=== PATIENT | male | born 1970 | race Caucasian/White ===

== ENCOUNTER 2016-06-05 17:58 | Emergency (ER) | payer BC ==
--- NOTE | 2016-06-05 18:26 | EDM.PDOC ---
ED HISTORY OF PRESENT ILLNESS - General Chief Complaint: Cardiovascular Problem Stated Complaint: CHEST PAIN Time Seen by Provider: 06/05/16 18:00 Source: Reports: Patient History Limitations: Reports: No limitations - History of Present Illness INITIAL COMMENTS - FREE TEXT/NARRATIVE: According to patient he has been having left upper extremity and lower extremity numbness for few days. he did go to his chiropractor and have manipulation done today. In the evening he started to notice some pain in his left shoulder and his left hand arm numbness got worse. No chest pain or tightness. He has had left shoulder pain, more so at night fro past few months. No nausea or vomiting. he did have some head ache which has resolved. Symptom Onset Date: 06/05/16 Symptom Onset Time: 17:00 Severity: mild Improves with: Reports: None Worsens with: Reports: None Associated Symptoms: Reports: headaches. Denies: confusion, chest pain, cough, diaphoresis, fever/chills, nausea/vomiting, seizure, shortness of breath, syncope - Related Data Allergies/ADRs: Allergies Allergy/AdvReac Type Severity Reaction Status Date / Time amoxicillin [Amoxicillin] Allergy Rash Verified 06/05/16 18:06 Home Meds: Home Meds Albuterol Sulfate [Albuterol Sulfate HFA] 8.5 gm IH Q4H PRN 02/19/13 [History] Calcium Carb&Cit/D3/Phytostrol [Citracal D + Heart Health] 1 each PO BEDTIME 05/30 [History] Fluticasone Propionate [Flovent HFA 44 MCG] 2 puff INH BID 02/19/13 [History] Multivitamin [Multi Vitamin Daily] 1 each PO BEDTIME 02/19/13 [History] Sertraline [Zoloft] 50 mg PO BEDTIME 02/19/13 [History] Simvastatin [Zocor] 40 mg PO BEDTIME 02/19/13 [History] diphenhydrAMINE [Benadryl] 25 mg PO BEDTIME PRN 02/19/13 [History] Carvedilol [Coreg] 6.25 mg PO BID 06/05/16 [History] Lisinopril 10 mg PO BEDTIME 06/05/16 [History] Past Medical History Musculoskeletal History: Reports: Osteoarthritis, Other (see below) Other Musculoskeletal History: Right lateral epicondylitis - treated with cortisone injections Social & Family History - Tobacco Use Years of Tobacco use: 18 Used Tobacco, but Quit: Yes Month Tobacco Last Used: 2006 Second Hand Smoke Exposure: No - Alcohol Use Days Per Week of Alcohol Use: 0 - Recreational Drug Use Recreational Drug Use: No ED ROS GENERAL - Review of Systems Review Of Systems: See Below Constitutional: Denies: fever, chills, weakness, fatigue, night sweats HEENT: Denies: Eye discharge, Vision change Respiratory: Denies: Shortness of Breath, Wheezing, Cough, Sputum Cardiovascular: Denies: Chest pain, Dyspnea on exertion, Lightheadedness, Palpitations, Syncope Endocrine: Denies: fatigue, high glucose GI/Abdominal: Denies: Abdominal pain, Nausea, Vomiting : Denies: dysuria, flank pain Musculoskeletal: Reports: shoulder pain (left). Denies: joint pain, joint swelling, muscle stiffness Skin: Denies: pruritis, rash Neurological: Reports: Headache, Tingling. Denies: Confusion, Dizziness, Tremors, Change in Speech, Gait Disturbance Psychiatric: Denies: Anxiety, Confusion ED EXAM, GENERAL - Physical Exam Exam: See Below Exam Limited By: No limitations General Appearance: alert, WD/WN, no apparent distress Eye Exam: bilateral eye: EOMI, PERRL Ears: normal external exam, normal canal, hearing grossly normal, normal TMs Ear Exam: bilateral ear: auricle normal, canal normal, TM normal Nose: normal inspection, normal mucosa, no blood Throat/Mouth: Normal inspection, Normal lips, Normal teeth, Normal gums, Normal oropharynx, Normal voice, No airway compromise Head: atraumatic, normocephalic Neck: normal inspection, supple, non-tender, full range of motion Respiratory/Chest: no respiratory distress, lungs clear, normal breath sounds, no accessory muscle use, chest non-tender Cardiovascular: normal peripheral pulses, regular rate, rhythm, no edema, no gallop, no JVD, no murmur, no rub GI/Abdominal: normal bowel sounds, soft, non tender, no organomegaly, no distention, no abnormal bruit, no mass Extremities: normal inspection, normal range of motion, non-tender, no pedal edema, normal capillary refill, other (left shoulder weakness in supraspinatus tendon.) Neurological: alert, oriented, CN II-XII intact, normal cognition, normal gait, normal reflexes, no motor/sensory deficits Skin Exam: Warm, Intact EKG INTERPRETATION EKG Date: 06/05/16 Rhythm: NSR Rate (beats/min): 87 [place]: normal P-wave: present QRS: normal ST-T: normal QT: normal Course - Vital Signs Text/Narrative:: Pt's EKG is normal. His CBC and CMP are normal and his troponin is negative. His left arm tinging is going on for more than a day. It does appear like he has tingling form possible neurological and chronic.. 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 Last Recorded V/S: Last Vital Signs Temp 97.4 F 06/05/16 18:14 Pulse 94 06/05/16 17:58 Resp 16 06/05/16 18:14 BP 129/89 06/05/16 18:14 Pulse Ox 94 L 06/05/16 18:14 - Orders/Labs/Meds Orders: Active Orders 24 hr Category Date Time Status EKG Documentation Completion [RC] ASDIRECTED Care 06/05/16 18:03 Active COMPREHENSIVE METABOLIC PN,CMP [CHEM] Stat Lab 06/05/16 18:00 Received TROPONIN I [CHEM] Stat Lab 06/05/16 18:00 Received Labs: Laboratory Tests 06/05/16 Range/Units 18:03 WBC 8.8 (4.0-11.0) K/uL RBC 4.84 (4.50-6.50) M/uL Hgb 14.8 (13.0-18.0) g/dL Hct 43.1 (40.0-54.0) % MCV 89 (76-96) fL MCH 30.6 (27.0-32.0) pg MCHC 34.3 (31.0-35.0) g/dL RDW 12.8 (11.0-16.0) % Plt Count 261 (150-400) K/uL MPV 10.1 H (6.0-10.0) fL Neut % (Auto) 55.7 (45.0-70.0) % Lymph % (Auto) 31.4 (20.0-40.0) % [place] % (Auto) 10.7 H (3.0-10.0) % Eos % (Auto) 1.9 (1.0-5.0) % Baso % (Auto) 0.3 (0.0-0.5) % Neut # (Auto) 4.90 (2.00-7.50) K/uL Lymph # (Auto) 2.76 (1.50-4.00) K/uL [place] # (Auto) 0.94 H (0.20-0.80) K/uL Eos # (Auto) 0.17 (0.04-0.40) K/uL Baso # (Auto) 0.03 (0.02-0.10) K/uL Departure - Departure Time of Disposition: 18:45 Disposition: Home, Self-Care 01 Condition: good Clinical Impression: Tingling of left upper extremity, Impingement syndrome, shoulder, left Forms: ED Department Discharge Additional Instructions: Pt's EKG is normal. His CBC and CMP are normal and his troponin is negative. His left arm tinging is going on for more than a day. It does appear like he has tingling form possible neurological and chronic.. 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 - Problem List & Annotations (1) Tingling of left upper extremity SNOMED Code(s): 158538366, 237389927 Code(s): R20.2 - PARESTHESIA OF SKIN Status: Acute (2) Impingement syndrome, shoulder, left SNOMED Code(s): 283897908 Code(s): M75.42 - IMPINGEMENT SYNDROME OF LEFT SHOULDER Status: Acute - Problem List Review Problem List Initiated/Reviewed/Updated: Yes - My Orders Last 24 Hours: My Active Orders 06/05/16 18:00 COMPREHENSIVE METABOLIC PN,CMP [CHEM] Stat TROPONIN I [CHEM] Stat 06/05/16 18:03 EKG Documentation Completion [RC] ASDIRECTED - Assessment/Plan Last 24 Hours: My Active Orders 06/05/16 18:00 COMPREHENSIVE METABOLIC PN,CMP [CHEM] Stat TROPONIN I [CHEM] Stat 06/05/16 18:03 EKG Documentation Completion [RC] ASDIRECTED Assessment:: Lt shoulder tingling Left shoulder impingement syndrome Plan: Pt's EKG is normal. His CBC and CMP are normal and his troponin is negative. His left arm tinging is going on for more than a day. It does appear like he has tingling form possible neurological and chronic.. 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
[2016-06-05 18:29] VITALS: BP 129/89
== END 2016-06-05 18:50 | disposition home or self-care (01) ==
LOC: LB.ED 17:58
DX: M75.42 Impingement syndrome of left shoulder (principal); M19.90 Unspecified osteoarthritis, unspecified site; Z88.1 Allergy status to other antibiotic agents; Z79.899 Other long term (current) drug therapy
CPT/HCPCS: 36415; 80053; 84484; 85025; 99284-25

== ENCOUNTER 2018-09-24 10:39 | Emergency (ER) | payer BC ==
[2018-09-24] MEDS ORDERED: Sodium Chloride 0.9% 10 ML Syringe FLUSH PRN (10:53)
--- NOTE | 2018-09-24 10:58 | EDM.PDOC ---
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 States the pain lasted about 5-6 minutes and felt like a dull pain and into the chin and some hot flash with this. He hasn't taken anything for the pain and it is gone now. Rated pain 4/10, but gone now. Pt is feeling ok now and no pain. No pain to chest or chin anymore. He had just gotten home this am around 130 from a work related trip out of town, States this was uneventful and no pain and no cough with travel. States a history of heart failure with EF of <50%, but was started on Carvedilol, lisinopril, simvastatin and Sertraline, and this has improved. States he has been taking this for about 5 years. Heart rate of 78 now and pt is resting comfortably. - Related Data Allergies Allergy/AdvReac Type Severity Reaction Status Date / Time amoxicillin [Amoxicillin] Allergy Rash Verified 09/24/18 10:48 Home Meds: Home Meds Albuterol Sulfate [Albuterol Sulfate HFA] 8.5 gm IH Q4H PRN 02/19/13 [History] Calcium Carb&Cit/D3/Phytostrol [Citracal D + Heart Health] 1 each PO BEDTIME 05/30 [History] Multivitamin [Multi Vitamin Daily] 1 each PO BEDTIME 02/19/13 [History] Sertraline [Zoloft] 100 mg PO BEDTIME 02/19/13 [History] Simvastatin [Zocor] 40 mg PO BEDTIME 02/19/13 [History] diphenhydrAMINE [Benadryl] 25 mg PO BEDTIME PRN 02/19/13 [History] Carvedilol [Coreg] 6.25 mg PO BID 06/05/16 [History] Lisinopril 10 mg PO BEDTIME 06/05/16 [History] Past Medical History Cardiovascular History: Reports: Heart Failure Respiratory History: Reports: Other (See Below) Other Respiratory History: [id number] deficiency Musculoskeletal History: Reports: Osteoarthritis Other Musculoskeletal History: Right lateral epicondylitis - treated with cortisone injections ED ROS GENERAL - Review of Systems Review Of Systems: See Below Constitutional: Reports: No Symptoms HEENT: Reports: No Symptoms Respiratory: Reports: No Symptoms Cardiovascular: Reports: Chest Pain, Other (pain into chin, pain lasted about 6 minutes.). Denies: Edema GI/Abdominal: Reports: No Symptoms Musculoskeletal: Reports: No Symptoms Skin: Reports: Other (felt like hot flash) Neurological: Reports: No Symptoms Psychiatric: Reports: Anxiety Hematologic/Lymphatic: Reports: No Symptoms Immunologic: Reports: No Symptoms ED EXAM, GENERAL - Physical Exam Exam: See Below Exam Limited By: No Limitations General Appearance: Alert, No Apparent Distress Ears: Hearing Grossly Normal Nose: Normal Inspection, Normal Mucosa Throat/Mouth: Normal Inspection, Normal Lips, No Airway Compromise Head: Atraumatic, Normocephalic, Other Neck: Non-Tender, Full Range of Motion Respiratory/Chest: No Respiratory Distress, Lungs Clear, Normal Breath Sounds Cardiovascular: Regular Rate, Rhythm, No Edema GI/Abdominal: Normal Bowel Sounds, Soft, Non-Tender Extremities: Normal Inspection, No Pedal Edema Neurological: Alert, Oriented, Normal Cognition Psychiatric: Normal Affect, Normal Mood Skin Exam: Warm, Dry, Normal Color Lymphatic: No Adenopathy Course - Orders/Labs/Meds Orders: Active Orders 24 hr Category Date Time Status Cardiac Monitoring [RC] .As Directed Care 09/24/18 10:54 Active EKG Documentation Completion [RC] ASDIRECTED Care 09/24/18 10:55 Active CBC WITH AUTO DIFF [HEME] Stat Lab 09/24/18 10:53 Ordered COMPREHENSIVE METABOLIC PN,CMP [CHEM] Stat Lab 09/24/18 10:53 Ordered TROPONIN I [CHEM] Stat Lab 09/24/18 10:53 Ordered Sodium Chloride 0.9% [Saline Flush] Med 09/24/18 10:53 Active 10 ml FLUSH ASDIRECTED PRN Saline Lock Insert [OM.PC] Stat Oth 09/24/18 10:53 Ordered Resuscitation Status Routine Resus Stat 09/24/18 10:53 Ordered EKG 12 Lead [EK] Stat Ther 09/24/18 10:54 Ordered Medication Orders Sodium Chloride (Saline Flush) 10 ml FLUSH ASDIRECTED PRN PRN Reason: Keep Vein Open Meds: Medications Generic Name Dose Route Start Last Admin Trade Name Freq PRN Reason Stop Dose Admin Sodium Chloride 10 ml 09/24/18 10:53 Saline Flush FLUSH ASDIRECTED PRN Keep Vein Open - Re-Assessments/Exams Free Text/Narrative Re-Assessment/Exam: 09/24/18 11:06 History of heart disease/early heart failure and stable with medication. He does have routine follow-up with cardiology with [facility] [place] and thought the last visit was around 12/2017. Echo in the past and no stress test in the past. 09/24/18 11:09 States pleurisy about 2 years ago. Departure - Departure Time of Disposition: 12:01 Disposition: Home, Self-Care 01 Condition: Good Clinical Impression: Angina of effort Referrals: PCP,None [Primary Care Provider] - Forms: ED Department Discharge - My Orders Last 24 Hours: My Active Orders 09/24/18 10:53 CBC WITH AUTO DIFF [HEME] Stat COMPREHENSIVE METABOLIC PN,CMP [CHEM] Stat TROPONIN I [CHEM] Stat Sodium Chloride 0.9% [Saline Flush] 10 ml FLUSH ASDIRECTED PRN Saline Lock Insert [OM.PC] Stat Resuscitation Status Routine 09/24/18 10:54 Cardiac Monitoring [RC] .As Directed EKG 12 Lead [EK] Stat 09/24/18 10:55 EKG Documentation Completion [RC] ASDIRECTED - Assessment/Plan Last 24 Hours: My Active Orders 09/24/18 10:53 CBC WITH AUTO DIFF [HEME] Stat COMPREHENSIVE METABOLIC PN,CMP [CHEM] Stat TROPONIN I [CHEM] Stat Sodium Chloride 0.9% [Saline Flush] 10 ml FLUSH ASDIRECTED PRN Saline Lock Insert [OM.PC] Stat Resuscitation Status Routine 09/24/18 10:54 Cardiac Monitoring [RC] .As Directed EKG 12 Lead [EK] Stat 09/24/18 10:55 EKG Documentation Completion [RC] ASDIRECTED Plan: Labs reviewed and not troponins elevated. EKG is NSR. No return of chest pain. Note to be off of work this weekend. Rest this weekend, follow-up with cardiology or PCP next week. Please make an appointment. No strenuous work for the next 2 days.
[2018-09-24 11:19] VITALS: BP 117/64; PULSE 78
== END 2018-09-24 12:03 | disposition home or self-care (01) ==
LOC: LB.ED 10:39
DX: I20.8 Other forms of angina pectoris (principal); I50.9 Heart failure, unspecified; M19.90 Unspecified osteoarthritis, unspecified site; Z88.0 Allergy status to penicillin; Z79.899 Other long term (current) drug therapy; Z79.02 Long term (current) use of antithrombotics/antiplatelets; Z79.01 Long term (current) use of anticoagulants
CPT/HCPCS: 36415; 80053; 84484; 85025; 93005; 99284-25

== ENCOUNTER 2021-09-03 20:29 | Emergency (ER) | payer BC ==
[2021-09-03] MEDS: metroNIDAZOLE 500 MG Tab ONE (20:55)
[2021-09-03 21:41] VITALS: BP 142/88; PULSE 95
[2021-09-03] MEDS ORDERED: Sulfamethoxazole/Trimethoprim 800-160 MG Tab ONE (22:00)
[2021-09-03] MEDS ORDERED: metroNIDAZOLE 500 MG Tab PO SCH (23:15)
== END 2021-09-03 22:30 | disposition home or self-care (01) ==
LOC: LB.ED 20:29
DX: S61.452A Open bite of left hand, initial encounter (principal); Z88.0 Allergy status to penicillin; Z79.899 Other long term (current) drug therapy; W54.0XXA Bitten by dog, initial encounter
CPT/HCPCS: 73130-LT; 99281; 99283; A9270-GY